=== PATIENT | male | born 1985 | race Caucasian/White ===

== ENCOUNTER 2023-06-26 19:55 | Emergency (ER) | payer BC ==
[~2023-06-26] VITALS: Ht 172.7 cm; Wt 92.5 kg
[~2023-06-26 19:55] MED LIST: HUMSLIDE; INSU100S22 SUBQ
[2023-06-26 20:05] VITALS: BP 137/104; PULSE 84; RESP 16; TEMP 96.1; O2SAT 96
[2023-06-26 21:00] VITALS: O2SAT 97
[2023-06-26 21:14] VITALS: BP 143/98; PULSE 70; RESP 14; TEMP 98.1; O2SAT 97
[2023-06-26] MEDS: KETOROLAC 30 MG/ML VIAL IVP ONE (21:14)
[2023-06-26] MEDS: NACL 0.9% 1,000 ML IV ONE (21:15)
[2023-06-26] MEDS ORDERED: PIPERACILLIN/TAZOBACTAM 3.375 GM VIAL IV ONE (21:28)
[2023-06-26] MEDS: PIPERACILLIN/TAZOBACTAM 3.375 GM in DEXTROSE 5% 50 ML IV ONE (21:36)
[2023-06-26 21:41] LABS: BASOPHILS # (AUTO) 0.1 K/uL (0.00-0.22); BASOPHILS % (AUTO) 0.8 % (0.0-2.0); EOSINOPHILS # (AUTO) 0.1 K/uL (0-0.4); EOSINOPHILS % (AUTO) 1.5 % (0.0-4.0); HEMATOCRIT 52.4 % (36-52); HEMOGLOBIN 18.3 g/dL (12.0-18.0); LYMPHOCYTES # (AUTO) 2.6 K/uL (2.0-11.5); LYMPHOCYTES % (AUTO) 29.9 % (20.5-51.1); MEAN CORPUSCULAR HEMOGLOBIN 29 pg (27-31); MEAN CORPUSCULAR HGB CONC 35 g/dL (33-37); MEAN CORPUSCULAR VOLUME 83.8 fL (80-94); MONOCYTES # (AUTO) 0.4 K/uL (0.8-1.0); MONOCYTES % (AUTO) 4.8 % (1.7-9.3); NEUTROPHILS # (AUTO) 5.6 K/uL (1.8-7.7); PLATELET COUNT (AUTO) 262 K/uL (140-450); RED BLOOD CELL COUNT(AUTO) 6.25 MIL/uL (4.20-6.10); RED CELL DISTRIBUTION WIDTH 14.6 % (11.6-13.7); WHITE BLOOD COUNT (AUTO) 8.8 K/uL (4.8-10.8)
[2023-06-26 21:48] LABS: ANION GAP 13.8 (8-16); CALCIUM 8.9 mg/dL (8.5-10.1); CARBON DIOXIDE 23.8 mmol/L (21-32); CREATININE 0.8 mg/dL (0.6-1.3); POTASSIUM 3.6 mmol/L (3.5-5.1)
[2023-06-26 21:50] LABS: INR 1.11 (0.8-1.2); PARTIAL THROMBOPLASTIN TIME 27.9 secs (22-35.6); PROTHROMBIN TIME 11.5 secs (10.8-13.4)
[2023-06-26 22:02] LABS: LACTIC ACID 0.9 mmol/L (0.4-2.0)
[2023-06-26 22:10] LABS: ALANINE AMINOTRANSFERASE 57 U/L (12-78); ALBUMIN 3.9 g/dL (3.4-5.0); ALKALINE PHOSPHATASE 75 U/L (50-136); ASPARTATE AMINOTRANSFERASE 34 U/L (15-37); BILIRUBIN,DIRECT 0.1 mg/dL (0.0-0.3); TOTAL BILIRUBIN 0.6 mg/dL (0.0-1.0); TOTAL PROTEIN, SERUM 7.1 g/dL (6.4-8.2)
[2023-06-26] MEDS ORDERED: AZIT250T4 PO (22:38)
[2023-06-26] MEDS ORDERED: MELO-176 PO (22:38)
== END 2023-06-26 22:45 | disposition home or self-care (01) ==
LOC: MED 19:55
DX: R07.9 Chest pain, unspecified (principal); M79.10 Myalgia, unspecified site; R63.0 Anorexia; R20.0 Anesthesia of skin; R42 Dizziness and giddiness; E11.9 Type 2 diabetes mellitus without complications; Z79.2 Long term (current) use of antibiotics; Z79.4 Long term (current) use of insulin
CPT/HCPCS: 36415; 71045; 80048; 80076; 83605; 83880; 84484; 85025; 85610; 85651; 85730; 87040; 93005; 96365; 96375; 99285; J1885; J2543; J7030